=== PATIENT | male | born 1955 | race Caucasian/White ===

== ENCOUNTER 2017-05-05 00:09 | Emergency (ER) | payer OTHER ==
[2017-05-05 00:27] VITALS: BP 141/90; PULSE 80; TEMP 99.2; BMI 29.2
[2017-05-05] MEDS ORDERED: SODIUM CHLORIDE 1,000 ML IV STA (01:09)
[2017-05-05] MEDS ORDERED: KETOROLAC TROMETHAMINE 30 MG/1 ML VIAL IVPUSH ONE (01:09)
[2017-05-05] MEDS ORDERED: KETOROLAC TROMETHAMINE 30 MG/1 ML VIAL ONE (01:19)
[2017-05-05 01:29] LABS: MCH 26.8 pg (25.7-33.7); MCHC 33.2 g/dl (32.0-35.9); MEAN CELL VOLUME 80.9 fl (80-96); MEAN PLT VOLUME 9.5 fl (7.5-11.1); PLATELET COUNT 233 K/MM3 (134-434); RDW 14.5 % (11.9-15.9); WHITE BLOOD COUNT 10.8 K/mm3 (4.0-10.0)
--- NOTE | 2017-05-05 01:38 | PDOC ---
History of Present Illness - General History Source: Patient Exam Limitations: No Limitations - History of Present Illness Initial Comments: 05/05/17 01:32 Patient is a 61M with no significant medical history here today complaining of two days of fever, cough, runny dose, body aches and diarrhea. He denies getting a flu shot. Denies sick contacts. Patient denies chest pain, shortness of breath, and abdominal pain. He says he's had many episodes of diarrhea, but denies blood in his stool. He says he's had decreased PO intake because he's had to go to the bathroom so many times. <Jorge Disla - Last Filed: 05/05/17 04:45> <Yara Parry - Last Filed: 05/05/17 20:01> - General Chief Complaint: Pain Stated Complaint: COUGH Time Seen by Provider: 05/05/17 00:54 Past History - Past Medical History COPD: No HTN: Yes Hypercholesterolemia: Yes Psychiatric Problems: Yes (Anxiety, depression) - Suicide/Smoking/Psychosocial Hx Smoking History: Never smoked Have you smoked in the past 12 months: No Information on smoking cessation initiated: No Hx Alcohol Use: No Drug/Substance Use Hx: Yes (Marijuana) Substance Use Type: Alcohol, Marijuana <Jorge Disla - Last Filed: 05/05/17 04:45> <Yara Parry - Last Filed: 05/05/17 20:01> - Past Medical History Allergies/Adverse Reactions: Allergies Allergy/AdvReac Type Severity Reaction Status Date / Time apple Allergy Severe Difficulty Verified 05/05/17 00:24 Breathing pear Allergy Severe Difficulty Verified 05/05/17 00:24 Breathing No Known Drug Allergies Allergy Verified 05/05/17 00:24 Home Medications: Ambulatory Orders Unobtainable [Unobtainable] 02/17/15 Review of Systems - Review of Systems Comments:: 05/05/17 01:36 GENERAL/CONSTITUTIONAL: Positive for fever and chills. No weakness. HEAD, EYES, EARS, NOSE AND THROAT: No change in vision. Positive for sore throat. CARDIOVASCULAR: No chest pain or shortness of breath RESPIRATORY: No cough, wheezing, or hemoptysis. GASTROINTESTINAL: No nausea, vomiting. Positive for diarrhea. GENITOURINARY: No dysuria, frequency, or change in urination. SKIN: No rash NEUROLOGIC: Positive for headache. Negative for vertigo, loss of consciousness, or change in strength/sensation. ENDOCRINE: No increased thirst. No abnormal weight change ALLERGIC/IMMUNOLOGIC: No hives or skin allergy. <Jorge Disla - Last Filed: 05/05/17 04:45> *Physical Exam - Vital Signs Last Vital Signs Temp Pulse Resp BP Pulse Ox 99.2 F 80 20 141/90 98 05/05/17 00:25 05/05/17 00:25 05/05/17 00:25 05/05/17 00:25 05/05/17 00:25 - Physical Exam Comments: 05/05/17 01:38 GENERAL: Awake, alert, and fully oriented, in no acute distress HEAD: No signs of trauma, normocephalic, atraumatic EYES: PERRLA, EOMI, sclera anicteric, conjunctiva clear ENT: Auricles normal inspection, hearing grossly normal, nares patent, oropharynx clear without exudates. Dry mucosa NECK: Normal ROM, supple, no lymphadenopathy, JVD, or masses, no midline tenderness LUNGS: No distress, speaks full sentences, clear to auscultation bilaterally HEART: Regular rate and rhythm, normal S1 and S2, no murmurs, rubs or gallops, peripheral pulses normal and equal bilaterally. ABDOMEN: Soft, nontender, normoactive bowel sounds. No guarding, no rebound. No masses EXTREMITIES: Normal inspection, Normal range of motion, no edema. No clubbing or cyanosis. NEUROLOGICAL: Cranial nerves II through XII grossly intact. Normal speech, normal gait, no focal sensorimotor deficits SKIN: Warm, Dry, normal turgor, no rashes or lesions noted. <Jorge Disla - Last Filed: 05/05/17 04:45> - Vital Signs Last Vital Signs Temp Pulse Resp BP Pulse Ox 99.2 F 80 20 141/90 98 05/05/17 00:25 05/05/17 00:25 05/05/17 00:25 05/05/17 00:25 05/05/17 00:25 <Yara Parry - Last Filed: 05/05/17 20:01> ED Treatment Course - LABORATORY CBC & Chemistry Diagram: 05/05/17 01:15 05/05/17 01:15 - RADIOLOGY Radiology Studies Ordered: Category Date Time Status CHEST PA & LAT [RAD] Stat Radiology 05/05/17 01:09 Ordered - Medications Given in the ED: ED Medications Discontinued Medications Generic Name Dose Route Start Last Admin Trade Name Freq PRN Reason Stop Dose Admin Ketorolac Tromethamine 30 mg 05/05/17 01:09 05/05/17 01:28 Toradol Injection - IVPUSH 05/05/17 01:10 30 mg ONCE ONE Administration <Jorge Disla - Last Filed: 05/05/17 04:45> - LABORATORY CBC & Chemistry Diagram: 05/05/17 01:15 05/05/17 01:15 - ADDITIONAL ORDERS Additional order review: 05/05/17 01:25 Influenza Types A,B Antigen (ONIEL) - Final Nasopharyngeal Swab - Final 05/05/17 01:15 RBC 5.69 H MCV 80.9 MCHC 33.2 RDW 14.5 MPV 9.5 - Medications Given in the ED: ED Medications Discontinued Medications Generic Name Dose Route Start Last Admin Trade Name Freq PRN Reason Stop Dose Admin Acetaminophen 1,000 mg 05/05/17 04:24 05/05/17 04:29 Tylenol - PO 05/05/17 04:25 1,000 mg ONCE ONE Administration Sodium Chloride 1,000 mls @ 1,000 mls/hr 05/05/17 01:09 05/05/17 01:28 Normal Saline - IV 05/05/17 02:08 1,000 mls/hr ASDIR STA Administration Ketorolac Tromethamine 30 mg 05/05/17 01:09 05/05/17 01:28 Toradol Injection - IVPUSH 05/05/17 01:10 30 mg ONCE ONE Administration <Yara Parry - Last Filed: 05/05/17 20:01> Medical Decision Making - Medical Decision Making 05/05/17 01:38 61M with no PMH here today with subjective fever, diarrhea, chills, body aches. Vital signs stable and normal. Differential diagnosis includes, but is not limited to: undifferentiated viral illness, influenza. Will treat with IVF, toradol. Will eval with flu, cbc, cmp, cxr. 05/05/17 03:02 Laboratory Tests 05/05/17 05/05/17 01:15 01:15 WBC 10.8 H D Hgb 15.3 Hct 46.1 Plt Count 233 BUN 8 Creatinine 0.9 D CBC shows very slight leukocytosis. 05/05/17 04:45 CXR shows no acute cardiopulmonary process. Patient is asking for food to eat, no bowel movements in the ED. Says that he feels better. Will discharge with return precautions for diarrhea, suspect viral etiology. Will give tylenol for patient comfort, saying he feels a little warm. <Jorge Disla - Last Filed: 05/05/17 04:45> *DC/Admit/Observation/Transfer - Discharge Dispostion Admit: No <Jorge Disla - Last Filed: 05/05/17 04:45> <Yara Parry - Last Filed: 05/05/17 20:01> Diagnosis at time of Disposition: Diarrhea - Discharge Dispostion Disposition: HOME Condition at time of disposition: Good - Referrals Referrals: Ramy Rodriguez MD [Primary Care Provider] - - Patient Instructions Printed Discharge Instructions: DI for Diarrhea and Traveler's Diarrhea -- Adult Additional Instructions: Please return if you have any new, worsening, or concerning symptoms. Please follow up with your primary care physician next week. Print Language: KINYARWANDA - Post Discharge Activity Attending Attestation - Resident Resident Name: Jorge Disla - ED Attending Attestation I have performed the following: I have examined & evaluated the patient, The case was reviewed & discussed with the resident, I agree w/resident's findings & plan - HPI HPI: 05/05/17 20:00 Pt comes with fever and diarrhea - Physicial Exam PE: 05/05/17 20:00 agree with resident exam - Medical Decision Making 05/05/17 20:00 Pt improved with treatment in the ER. His labs are normal, and his flu is negative. Home with PMD followup as needed <Yara Parry - Last Filed: 05/05/17 20:01>
[2017-05-05 02:00] LABS: ALBUMIN 4.4 g/dl (3.4-5.0); ANION GAP 9 (8-16); CALCIUM 9.4 mg/dL (8.5-10.1); CO2 26 mmol/L (21-32); CREATININE 0.9 mg/dL (0.7-1.3); GLUCOSE,RANDOM 115 mg/dL (74-106); SGPT/ALT 31 U/L (12-78)
[2017-05-05 02:02] LABS: ALK PHOS 118 U/L (45-117); BILIRUBIN,TOTAL 0.7 mg/dL (0.2-1.0); TOT PROT 8.5 g/dl (6.4-8.2)
[2017-05-05 02:03] LABS: SGOT/AST 26 U/L (15-37)
[2017-05-05] MEDS ORDERED: ACETAMINOPHEN 500 MG TABLET (FP) PO ONE (04:24)
[2017-05-05] MEDS ORDERED: ACETAMINOPHEN 325 MG TABLET (FP) ONE (04:26)
== END 2017-05-05 04:56 | disposition home or self-care (01) ==
LOC: JER 00:09
PROC: 3E0333Z Introduction of Anti-inflammatory into Peripheral Vein, Percutaneous Approach (ICD-10-PCS; principal; 2017-05-05)
DX: A08.4 Viral intestinal infection, unspecified (principal); B97.89 Other viral agents as the cause of diseases classified elsewhere
CPT/HCPCS: 36415; 71020-TC; 80053; 85027; 87804; 99282-25

== ENCOUNTER 2017-05-19 14:02 | Emergency (ER) | payer OTHER ==
[2017-05-19 14:19] VITALS: BP 126/75; PULSE 64; TEMP 98.3; BMI 66.2
--- NOTE | 2017-05-19 14:43 | PDOC ---
History of Present Illness - General Chief Complaint: Nausea/Vomiting Stated Complaint: SICK Time Seen by Provider: 05/19/17 14:32 History Source: Patient Exam Limitations: No Limitations - History of Present Illness Initial Comments: 05/19/17 16:36 CHIEF COMPLAINT: Fever HISTORY OF PRESENT ILLNESS: This is an otherwise healthy 61-year-old male who presents for evaluation of 2 days of subjective fever, cough/nasal congestion, diarrhea, and nausea/vomiting. He thinks that he has the flu. He denies chest pain, shortness of breath, or any other symptoms. He is unable to specify the number of episodes of vomiting or diarrhea.He denies all medical problems including HIV and hepatitis although he does seem to have a referral to the [facility] in the system. Vital signs on arrival are unremarkable. PCP: Dr. Ramy Rodriguez REVIEW OF SYSTEMS: GENERAL/CONSTITUTIONAL: Subjective fever. No weakness. No weight change. HEAD, EYES, EARS, NOSE AND THROAT: Nasal congestion. No change in vision. No ear pain or discharge. No sore throat. CARDIOVASCULAR: No chest pain or palpitations. RESPIRATORY: Productive cough. No shortness of breath. GASTROINTESTINAL: Nausea/vomiting, diarrhea. No abdominal pain. GENITOURINARY: No dysuria, frequency, or change in urination. MUSCULOSKELETAL: No joint or muscle swelling or pain. No neck or back pain. SKIN: No rash or easy bruising. NEUROLOGIC: Frontal headache, gradual onset. No vertigo, loss of consciousness, or loss of sensation. PSYCHIATRIC: No depression or anxiety. ENDOCRINE: No increased thirst. No abnormal weight change. HEMATOLOGIC/LYMPHATIC: No anemia, easy bleeding, or history of blood clots. ALLERGIC/IMMUNOLOGIC: No hives or skin allergy. No latex allergy. PHYSICAL EXAM: GENERAL: The patient is awake, alert, and fully oriented, in no acute distress. HEAD: Normal with no signs of trauma. ENT: Pupils equal, round and reactive to light, extraocular movements intact, sclera anicteric, conjunctiva clear. Neck supple. LUNGS: Clear to auscultation bilaterally. Normal excursion. No respiratory distress or use of accessory muscles. CV: RRR, S1/S2, no MRG. Cap refill < 2 sec. ABDOMEN: Soft, non-distended, non-tender. EXTREMITIES: Normal range of motion, no edema. NEUROLOGICAL: Normal speech, normal gait. CN II-XII grossly intact. PSYCH: Normal mood, normal affect. SKIN: Warm, dry, normal turgor, no rashes or lesions noted. Past History - Past Medical History Allergies/Adverse Reactions: Allergies Allergy/AdvReac Type Severity Reaction Status Date / Time apple Allergy Severe Difficulty Verified 05/19/17 14:19 Breathing pear Allergy Severe Difficulty Verified 05/19/17 14:19 Breathing No Known Drug Allergies Allergy Verified 05/19/17 14:19 Home Medications: Ambulatory Orders Unobtainable [Unobtainable] 02/17/15 COPD: No HTN: Yes Hypercholesterolemia: Yes Psychiatric Problems: Yes (Anxiety, depression) - Suicide/Smoking/Psychosocial Hx Smoking History: Never smoked Have you smoked in the past 12 months: No Hx Alcohol Use: No Drug/Substance Use Hx: Yes (Marijuana) Substance Use Type: Alcohol, Marijuana *Physical Exam - Vital Signs Last Vital Signs Temp Pulse Resp BP Pulse Ox 98.3 F 64 18 126/75 99 05/19/17 14:16 05/19/17 14:16 05/19/17 14:16 05/19/17 14:16 05/19/17 14:16 Medical Decision Making - Medical Decision Making 05/19/17 18:11 A/P: 61 year old male with diarrhea, vomiting, and flu-like symptoms. No focal findings on exam. Rapid flu obtained and is negative. Tylenol and Toradol given for headache with good relief. CXR wet read: no infiltrate. The patient refuses to have any lab work done, despite being advised that this is necessary for adequate screening and diagnosis. He is feeling well and would like to be discharged. Return precautions reviewed. *DC/Admit/Observation/Transfer Diagnosis at time of Disposition: Flu-like symptoms Diarrhea Qualifiers: Diarrhea type: unspecified type Qualified Code(s): R19.7 - Diarrhea, unspecified Vomiting Qualifiers: Vomiting Intractability: unspecified Nausea presence: with nausea - Discharge Dispostion Disposition: HOME Condition at time of disposition: Stable Admit: No - Referrals Referrals: Ramy Rodriguez MD [Primary Care Provider] - - Patient Instructions Printed Discharge Instructions: DI for Diarrhea and Traveler's Diarrhea -- Adult Additional Instructions: Rest and stay well-hydrated Return if you would like to have lab work and further evaluation - Post Discharge Activity
[2017-05-19] MEDS ORDERED: ACETAMINOPHEN 325 MG TABLET (FP) PO ONE (14:54)
[2017-05-19] MEDS ORDERED: SODIUM CHLORIDE 1,000 ML IV STA (14:54)
[2017-05-19] MEDS ORDERED: ACETAMINOPHEN 325 MG TABLET (FP) ONE (15:16)
[2017-05-19] MEDS ORDERED: KETOROLAC TROMETHAMINE 30 MG/1 ML VIAL IM ONE (16:06)
[2017-05-19] MEDS ORDERED: KETOROLAC TROMETHAMINE 30 MG/1 ML VIAL ONE (16:39)
== END 2017-05-19 18:22 | disposition home or self-care (01) ==
LOC: JER 14:02
PROC: 3E0233Z Introduction of Anti-inflammatory into Muscle, Percutaneous Approach (ICD-10-PCS; principal; 2017-05-19)
DX: J11.2 Influenza due to unidentified influenza virus with gastrointestinal manifestations (principal)
CPT/HCPCS: 71046-TC; 87804; 96372; 99283-25

== ENCOUNTER 2021-07-11 23:36 | Observation (INO) | payer OTHER ==
[2021-07-11] MEDS ORDERED: ASPIRIN 81 MG CHEWABLE TABLETS PO ONE (23:45)
[2021-07-12 00:04] VITALS: TEMP 98.3; BMI 26.6
[2021-07-12] MEDS ORDERED: ASPIRIN 81 MG CHEWABLE TABLETS ONE (00:11)
[2021-07-12 00:37] LABS: BASO % 0.4 % (0-2.0); EOS % 0.6 % (0-4.5); HEMATOCRIT 40.2 % (35.4-49); HEMOGLOBIN 13.7 GM/dL (11.7-16.9); LYMPH % 14.5 % (8-40); MCH 27.2 pg (25.7-33.7); MCHC 34.1 g/dl (32.0-35.9); MEAN CELL VOLUME 79.7 fl (80-96); MEAN PLT VOLUME 8.8 fl (7.5-11.1); MONO % 6.9 % (3.8-10.2); NEUT % 77.6 % (42.8-82.8); PLATELET COUNT 196 10^3/uL (134-434); RBC 5.05 M/mm3 (4.00-5.60); WHITE BLOOD COUNT 7.3 K/mm3 (4.0-10.0)
[2021-07-12 00:47] LABS: INR 1.13 (0.83-1.09)
[2021-07-12 00:49] LABS: ACTIVATED PTT 30.3 SECONDS (25.2-36.5)
[2021-07-12 00:58] LABS: ALBUMIN 3.8 g/dl (3.4-5.0); BLOOD UREA NITROGEN 12.8 mg/dL (7-18); CALCIUM 9.2 mg/dL (8.5-10.1)
[2021-07-12 00:59] LABS: MAGNESIUM 2.1 mg/dL (1.8-2.4)
[2021-07-12 01:01] LABS: CREATININE 0.8 mg/dL (0.55-1.3)
[2021-07-12 01:03] LABS: BILIRUBIN,TOTAL 0.3 mg/dL (0.2-1); TOT PROT 7.1 g/dl (6.4-8.2)
[2021-07-12 06:48] LABS: URINE APPEARANCE CLEAR; URINE BILIRUBIN NEGATIVE (NEGATIVE); URINE COLOR YELLOW; URINE GLUCOSE (UA) NEGATIVE (NEGATIVE); URINE KETONE NEGATIVE (NEGATIVE); URINE LEUK ESTERASE NEGATIVE (NEGATIVE); URINE NITRITE NEGATIVE (NEGATIVE); URINE PROTEIN NEGATIVE (NEGATIVE); URINE UROBILINOGEN 0.2 mg/dL (0.2-1.0)
[2021-07-12 07:55] LABS: PHENCYCLIDINE,URINE NEGATIVE (NEGATIVE); URINE BARBITURATES NEGATIVE (NEGATIVE); URINE BENZODIAZEPINES NEGATIVE (NEGATIVE)
[2021-07-12 07:56] LABS: OPIATES, URI NEGATIVE (NEGATIVE)
[2021-07-12 07:58] LABS: COCAINE, UR NEGATIVE (NEGATIVE); METHADONE, UR NEGATIVE (NEGATIVE); URINE AMPHETAMINES NEGATIVE (NEGATIVE)
[2021-07-12 08:34] VITALS: BP 134/89; PULSE 70
[2021-07-12 09:15] LABS: BASO % 0.2 % (0-2.0); EOS % 0.8 % (0-4.5); HEMATOCRIT 41.7 % (35.4-49); HEMOGLOBIN 14.1 GM/dL (11.7-16.9); LYMPH % 10.5 % (8-40); MCH 27.3 pg (25.7-33.7); MCHC 33.9 g/dl (32.0-35.9); MEAN CELL VOLUME 80.6 fl (80-96); MEAN PLT VOLUME 8.9 fl (7.5-11.1); MONO % 7.3 % (3.8-10.2); NEUT % 81.2 % (42.8-82.8); PLATELET COUNT 189 10^3/uL (134-434); RBC 5.18 M/mm3 (4.00-5.60); RDW 14.3 % (11.9-15.9); WHITE BLOOD COUNT 7.9 K/mm3 (4.0-10.0)
[2021-07-12 09:45] LABS: ALBUMIN 3.8 g/dl (3.4-5.0); CALCIUM 8.6 mg/dL (8.5-10.1)
[2021-07-12 09:46] LABS: BLOOD UREA NITROGEN 9.9 mg/dL (7-18)
[2021-07-12 09:49] LABS: CREATININE 0.7 mg/dL (0.55-1.3); PHOSPHOROUS 3.8 mg/dL (2.5-4.9)
[2021-07-12 09:50] LABS: BILIRUBIN,TOTAL 0.3 mg/dL (0.2-1)
[2021-07-12 09:52] LABS: TOT PROT 6.9 g/dl (6.4-8.2)
[2021-07-12] MEDS ORDERED: ASPIRIN COATED 81 MG TABLET.EC PO SCH (10:00)
[2021-07-12] MEDS ORDERED: ENOXAPARIN NA (PORCINE) 40 MG/0.4 ML DISP.SYRIN SQ SCH (10:00)
[2021-07-12] MEDS ORDERED: ATORVASTATIN CA 40 MG TABLET (FP) PO SCH (22:00)
== END 2021-07-12 08:45 | disposition left against medical advice (07) ==
LOC: JER 23:36 → JERBED 07-12 04:15
PROVIDERS: ADMIT Internal Medicine
DX: R07.89 Other chest pain (principal); I10 Essential (primary) hypertension; E78.5 Hyperlipidemia, unspecified; F41.8 Other specified anxiety disorders; R07.9 Chest pain, unspecified; Z29.9 Encounter for prophylactic measures, unspecified; Z91.018 Allergy to other foods
CPT/HCPCS: 36415; 71045-TC-FY; 80053; 80061; 80307; 81003; 82550; 83036; 83735; 84100; 84443; 84484; 85025; 85610; 85730; 93005; 93010; 99285-25; C9803; G0378; U0003; U0005

== ENCOUNTER 2021-10-28 20:11 | Emergency (ER) | payer OTHER ==
[2021-10-28 20:24] VITALS: BP 148/81; PULSE 70; TEMP 99; BMI 28.1
[2021-10-28] MEDS ORDERED: ACETAMINOPHEN 1000 MG/100 ML BAG IVPB ONE (22:04)
[2021-10-28] MEDS ORDERED: SODIUM CHLORIDE 0.9% 1000 ML INFUS.BAG IV ONE (22:04)
[2021-10-28] MEDS ORDERED: MAG HYDROX/AL HYDROX/SIMETH -MYLANTA- ORAL SUSPENSION PO ONE (22:04)
[2021-10-28] MEDS ORDERED: FAMOTIDINE 20 MG/50 ML IVPB 20 MG/50 ML MG IVPB ONE ×2 (22:04→22:35)
[2021-10-28] MEDS ORDERED: ONDANSETRON 4 MG/2 ML VIAL IVPUSH ONE (22:04)
[2021-10-28] MEDS ORDERED: MAG HYDROX/AL HYDROX/SIMETH 30 ML UNIT-DOSE CUP ONE (22:35)
[2021-10-28] MEDS ORDERED: ONDANSETRON 4 MG/2 ML VIAL ONE (22:35)
[2021-10-28] MEDS ORDERED: ACETAMINOPHEN INJECTION 100 ML IVPB ONE (22:35)
[2021-10-28 22:46] LABS: BASO % 0.5 % (0-2.0); HEMATOCRIT 45.8 % (35.4-49); HEMOGLOBIN 15.3 GM/dL (11.7-16.9); LYMPH % 17.9 % (8-40); MCH 26.8 pg (25.7-33.7); MCHC 33.4 g/dl (32.0-35.9); MEAN PLT VOLUME 8.7 fl (7.5-11.1); MONO % 6.3 % (3.8-10.2); NEUT % 74.3 % (42.8-82.8); PLATELET COUNT 274 10^3/uL (134-434); RBC 5.72 M/mm3 (4.00-5.60); RDW 15.7 % (11.9-15.9); WHITE BLOOD COUNT 7.6 K/mm3 (4.0-10.0)
[2021-10-28 23:17] LABS: ALBUMIN 4.4 g/dl (3.4-5.0); BLOOD UREA NITROGEN 12.2 mg/dL (7-18); CALCIUM 9.1 mg/dL (8.5-10.1)
[2021-10-28 23:20] LABS: CREATININE 0.9 mg/dL (0.55-1.3)
[2021-10-28 23:22] LABS: BILIRUBIN,TOTAL 0.6 mg/dL (0.2-1); TOT PROT 8.9 g/dl (6.4-8.2)
== END 2021-10-29 01:36 | disposition home or self-care (01) ==
LOC: JER 20:11
PROC: 3E033GC Introduction of Other Therapeutic Substance into Peripheral Vein, Percutaneous Approach (ICD-10-PCS; principal; 2021-10-28)
DX: K80.20 Calculus of gallbladder without cholecystitis without obstruction (principal); K76.0 Fatty (change of) liver, not elsewhere classified; J11.1 Influenza due to unidentified influenza virus with other respiratory manifestations; R07.89 Other chest pain
CPT/HCPCS: 0241U-QW; 36415; 71046-TC-FY; 76705-TC; 80053; 83690; 84484; 85025; 93005; 93010; 96365; 96375; 99285-25

== ENCOUNTER 2021-11-03 21:06 | Observation (INO) | payer OTHER ==
[2021-11-03 22:49] LABS: BASO % 0.3 % (0-2.0); EOS % 0.2 % (0-4.5); HEMOGLOBIN 14.3 GM/dL (11.7-16.9); LYMPH % 13.5 % (8-40); MCH 26.9 pg (25.7-33.7); MCHC 33.9 g/dl (32.0-35.9); MEAN CELL VOLUME 79.2 fl (80-96); MEAN PLT VOLUME 8.6 fl (7.5-11.1); MONO % 8.5 % (3.8-10.2); NEUT % 77.5 % (42.8-82.8); PLATELET COUNT 242 10^3/uL (134-434); RDW 15.3 % (11.9-15.9); WHITE BLOOD COUNT 10.9 K/mm3 (4.0-10.0)
[2021-11-03 22:51] LABS: PH,URINE 5.5 (5.0-8.0); URINE APPEARANCE CLEAR; URINE BILIRUBIN NEGATIVE (NEGATIVE); URINE COLOR YELLOW; URINE GLUCOSE (UA) NEGATIVE (NEGATIVE); URINE KETONE NEGATIVE (NEGATIVE); URINE LEUK ESTERASE NEGATIVE (NEGATIVE); URINE NITRITE NEGATIVE (NEGATIVE); URINE PROTEIN NEGATIVE (NEGATIVE); URINE UROBILINOGEN 0.2 mg/dL (0.2-1.0)
[2021-11-04 00:15] LABS: CALCIUM 9.2 mg/dL (8.5-10.1)
[2021-11-04 00:17] LABS: ALBUMIN 4.2 g/dl (3.4-5.0)
[2021-11-04 00:20] LABS: BILIRUBIN,TOTAL 0.2 mg/dL (0.2-1)
[2021-11-04 00:22] LABS: TOT PROT 7.9 g/dl (6.4-8.2)
[2021-11-04 00:25] LABS: BLOOD UREA NITROGEN 13.5 mg/dL (7-18)
[2021-11-04] MEDS ORDERED: MELATONIN 1 MG TABLET PO ONE ×2 (02:32)
[2021-11-04] MEDS ORDERED: MELATONIN 5 MG TABLETS ONE (02:41)
[2021-11-04 07:39] LABS: BASO % 0.5 % (0-2.0); EOS % 0.8 % (0-4.5); HEMATOCRIT 43.6 % (35.4-49); HEMOGLOBIN 14.8 GM/dL (11.7-16.9); MCH 27.1 pg (25.7-33.7); MEAN CELL VOLUME 79.9 fl (80-96); MEAN PLT VOLUME 8.5 fl (7.5-11.1); MONO % 6.6 % (3.8-10.2); NEUT % 64.1 % (42.8-82.8); PLATELET COUNT 240 10^3/uL (134-434); RBC 5.45 M/mm3 (4.00-5.60); RDW 15.3 % (11.9-15.9); WHITE BLOOD COUNT 7.2 K/mm3 (4.0-10.0)
[2021-11-04 07:51] LABS: CALCIUM 9.4 mg/dL (8.5-10.1)
[2021-11-04 07:52] LABS: BLOOD UREA NITROGEN 9.2 mg/dL (7-18); MAGNESIUM 2.4 mg/dL (1.8-2.4)
[2021-11-04 07:55] LABS: CREATININE 0.7 mg/dL (0.55-1.3)
[2021-11-04] MEDS: ASPIRIN 81 MG CHEWABLE TABLETS PO SCH (15:08)
[2021-11-04] MEDS: amLODIPine BESYLATE 5 MG TABLET (FP) PO SCH (15:08)
[2021-11-04] MEDS: ENOXAPARIN NA (PORCINE) 40 MG/0.4 ML DISP.SYRIN SQ SCH (15:08)
[2021-11-04 15:49] VITALS: BMI 30.9
[2021-11-04] MEDS: ATORVASTATIN CA 20 MG TABLET (FP) PO SCH (22:08)
[2021-11-04] MEDS ORDERED: MELATONIN 5 MG TABLETS PO ONE (22:22)
[2021-11-05] MEDS: ASPIRIN 81 MG CHEWABLE TABLETS PO SCH (10:59)
[2021-11-05] MEDS: PANTOPRAZOLE 40 MG TABLET PO SCH (10:59)
[2021-11-05] MEDS: amLODIPine BESYLATE 5 MG TABLET (FP) PO SCH (10:59)
[2021-11-05] MEDS: ENOXAPARIN NA (PORCINE) 40 MG/0.4 ML DISP.SYRIN SQ SCH (13:39)
[2021-11-05] MEDS: ATORVASTATIN CA 20 MG TABLET (FP) PO SCH (21:39)
[2021-11-05] MEDS: MELATONIN 5 MG TABLETS PO PRN (21:56)
[2021-11-06] MEDS: ASPIRIN 81 MG CHEWABLE TABLETS PO SCH (09:42)
[2021-11-06] MEDS: amLODIPine BESYLATE 5 MG TABLET (FP) PO SCH (09:43)
[2021-11-06] MEDS: ENOXAPARIN NA (PORCINE) 40 MG/0.4 ML DISP.SYRIN SQ SCH (09:43)
[2021-11-06] MEDS: PANTOPRAZOLE 40 MG TABLET PO SCH (09:43)
[2021-11-06] MEDS: ATORVASTATIN CA 20 MG TABLET (FP) PO SCH (22:30)
[2021-11-06] MEDS: MELATONIN 5 MG TABLETS PO PRN (22:30)
[2021-11-07] MEDS: amLODIPine BESYLATE 5 MG TABLET (FP) PO SCH (10:28)
[2021-11-07] MEDS: ASPIRIN 81 MG CHEWABLE TABLETS PO SCH (10:28)
[2021-11-07] MEDS: ENOXAPARIN NA (PORCINE) 40 MG/0.4 ML DISP.SYRIN SQ SCH (10:28)
[2021-11-07] MEDS: PANTOPRAZOLE 40 MG TABLET PO SCH (10:28)
[2021-11-07] MEDS: MELATONIN 5 MG TABLETS PO PRN (21:48)
[2021-11-07] MEDS: ZOLPIDEM TARTRATE 5 MG TABLET PO PRN (21:48)
[2021-11-07] MEDS: ATORVASTATIN CA 20 MG TABLET (FP) PO SCH (21:48)
[2021-11-08] MEDS: amLODIPine BESYLATE 5 MG TABLET (FP) PO SCH (10:03)
[2021-11-08] MEDS: PANTOPRAZOLE 40 MG TABLET PO SCH (10:03)
[2021-11-08] MEDS: ENOXAPARIN NA (PORCINE) 40 MG/0.4 ML DISP.SYRIN SQ SCH (10:03)
[2021-11-08] MEDS: ASPIRIN 81 MG CHEWABLE TABLETS PO SCH (10:03)
[2021-11-08] MEDS: MELATONIN 5 MG TABLETS PO PRN (21:27)
[2021-11-08] MEDS: ATORVASTATIN CA 20 MG TABLET (FP) PO SCH (21:27)
[2021-11-08] MEDS: ZOLPIDEM TARTRATE 5 MG TABLET PO PRN (21:27)
[2021-11-09 08:20] LABS: BASO % 0.6 % (0-2.0); EOS % 0.8 % (0-4.5); HEMATOCRIT 44.8 % (35.4-49); HEMOGLOBIN 15.4 GM/dL (11.7-16.9); LYMPH % 29.2 % (8-40); MCH 27.2 pg (25.7-33.7); MCHC 34.3 g/dl (32.0-35.9); MEAN CELL VOLUME 79.3 fl (80-96); MEAN PLT VOLUME 8.8 fl (7.5-11.1); MONO % 6.7 % (3.8-10.2); NEUT % 62.7 % (42.8-82.8); PLATELET COUNT 246 10^3/uL (134-434); RBC 5.65 M/mm3 (4.00-5.60); RDW 15.4 % (11.9-15.9); WHITE BLOOD COUNT 10.3 K/mm3 (4.0-10.0)
[2021-11-09 08:36] LABS: CALCIUM 9.4 mg/dL (8.5-10.1)
[2021-11-09 08:37] LABS: ALBUMIN 4.2 g/dl (3.4-5.0); BLOOD UREA NITROGEN 13.8 mg/dL (7-18)
[2021-11-09 08:40] LABS: CREATININE 0.9 mg/dL (0.55-1.3)
[2021-11-09 08:52] LABS: BILIRUBIN,TOTAL 0.8 mg/dL (0.2-1); TOT PROT 7.9 g/dl (6.4-8.2)
[2021-11-09] MEDS: amLODIPine BESYLATE 5 MG TABLET (FP) PO SCH (10:35)
[2021-11-09] MEDS: ASPIRIN 81 MG CHEWABLE TABLETS PO SCH (10:35)
[2021-11-09] MEDS: ENOXAPARIN NA (PORCINE) 40 MG/0.4 ML DISP.SYRIN SQ SCH ×2 (10:36→10:40)
[2021-11-09] MEDS: PANTOPRAZOLE 40 MG TABLET PO SCH (10:36)
[2021-11-09] MEDS: ATORVASTATIN CA 20 MG TABLET (FP) PO SCH (22:16)
[2021-11-09] MEDS: ZOLPIDEM TARTRATE 5 MG TABLET PO PRN (22:16)
[2021-11-09] MEDS: MELATONIN 5 MG TABLETS PO PRN (22:20)
[2021-11-10 10:11] VITALS: TEMP 98.2
[2021-11-10] MEDS: ENOXAPARIN NA (PORCINE) 40 MG/0.4 ML DISP.SYRIN SQ SCH (10:17)
[2021-11-10] MEDS: PANTOPRAZOLE 40 MG TABLET PO SCH (10:17)
[2021-11-10] MEDS: amLODIPine BESYLATE 5 MG TABLET (FP) PO SCH (10:17)
[2021-11-10] MEDS: ASPIRIN 81 MG CHEWABLE TABLETS PO SCH (10:17)
[2021-11-10 14:09] VITALS: BP 145/75; PULSE 71
== END 2021-11-10 18:50 | disposition home or self-care (01) ==
LOC: JER 21:06 → JERBED 11-04 00:43 → J4W 11-04 08:56 → J7W 11-07 21:53
PROVIDERS: ADMIT Hospitalist
PROC: 3E013GC Introduction of Other Therapeutic Substance into Subcutaneous Tissue, Percutaneous Approach (ICD-10-PCS; principal; 2021-11-04)
DX: K11.7 Disturbances of salivary secretion (principal); R07.89 Other chest pain; I10 Essential (primary) hypertension; E78.5 Hyperlipidemia, unspecified; F41.9 Anxiety disorder, unspecified; F32.A Depression, unspecified; R13.10 Dysphagia, unspecified; K21.9 Gastro-esophageal reflux disease without esophagitis; G47.00 Insomnia, unspecified; F39 Unspecified mood [affective] disorder; N40.0 Benign prostatic hyperplasia without lower urinary tract symptoms; E66.9 Obesity, unspecified; Z68.30 Body mass index [BMI] 30.0-30.9, adult; Z91.018 Allergy to other foods
CPT/HCPCS: 36415; 70360-TC-FY; 70470-TC; 70491-TC; 71046-TC-FY; 71260-TC; 74230-TC-FY; 80048; 80053; 80061; 81003; 82550; 83036; 83690; 83735; 84443; 84484; 85025; 92611-GN; 93005; 93010; 96372; 99285-25; C9803-CS; G0378; Q9967; U0003; U0005

== ENCOUNTER 2023-05-16 00:22 | Observation (INO) | payer OTHER ==
[2023-05-16 00:35] VITALS: BMI 33.7
[2023-05-16] MEDS ORDERED: ACETAMINOPHEN 1000 MG/100 ML BAG IVPB ONE (01:07)
[2023-05-16] MEDS ORDERED: ACETAMINOPHEN INJECTION 100 ML IVPB ONE (01:16)
[2023-05-16] MEDS ORDERED: SODIUM CHLORIDE 0.9% 1000 ML INFUS.BAG IV STA (01:27)
[2023-05-16 01:44] LABS: BASO % 0.2 % (0-2.0); EOS % 0.1 % (0-4.5); HEMATOCRIT 43.4 % (35.4-49); HEMOGLOBIN 14.4 GM/dL (11.7-16.9); LYMPH % 7.4 % (8-40); MCH 25.6 pg (25.7-33.7); MCHC 33.2 g/dl (32.0-35.9); MEAN CELL VOLUME 77.1 fl (80-96); MEAN PLT VOLUME 8.8 fl (7.5-11.1); MONO % 7.9 % (3.8-10.2); NEUT % 84.4 % (42.8-82.8); PLATELET COUNT 228 10^3/uL (134-434); RBC 5.63 M/mm3 (4.00-5.60); RDW 15.2 % (11.9-15.9); WHITE BLOOD COUNT 8.7 K/mm3 (4.0-10.0)
[2023-05-16] MEDS ORDERED: AZITHROMYCIN IVPB 500 MG in DEXTROSE 5%-WATER - 250 ML IVPB ONE (01:59)
[2023-05-16] MEDS ORDERED: CEFTRIAXONE 1,000 MG in DEXTROSE 5%-WATER - 50 ML IVPB ONE (01:59)
[2023-05-16 02:05] LABS: POTASSIUM 3.9 mmol/L (3.5-5.1)
[2023-05-16 02:07] LABS: BLOOD UREA NITROGEN 12.1 mg/dL (7-18); CALCIUM 9.4 mg/dL (8.5-10.1)
[2023-05-16 02:08] LABS: ALBUMIN 4.2 g/dl (3.4-5.0)
[2023-05-16 02:11] LABS: CREATININE 1.1 mg/dL (0.55-1.3)
[2023-05-16 02:12] LABS: BILIRUBIN,TOTAL 0.4 mg/dL (0.2-1)
[2023-05-16 02:13] LABS: TOT PROT 8.7 g/dl (6.4-8.2)
[2023-05-16 02:24] LABS: N-TERMINAL BNP 33.2 pg/ml (5-125)
[2023-05-16] MEDS ORDERED: CEFTRIAXONE 1 GM/50 ML BAG ONE (02:33)
[2023-05-16] MEDS ORDERED: AZITHROMYCIN IVPB 500 MG/250 ML BAG IVPB ONE (02:33)
[2023-05-16 03:04] VITALS: TEMP 100
[2023-05-16] MEDS ORDERED: OSELTAMIVIR PHOSPHATE 75 MG CAPSULE PO ONE (05:39)
[2023-05-16] MEDS ORDERED: OSELTAMIVIR PHOSPHATE 75 MG CAPSULE PO SCH ×3 (05:45→22:00)
[2023-05-16] MEDS ORDERED: LACTATED RINGERS SOLUTION 1,000 ML/1,000 ML INFUS.BAG IV SCH (06:15)
[2023-05-16] MEDS ORDERED: ACETAMINOPHEN 325 MG TABLET (FP) PO PRN (06:34)
[2023-05-16] MEDS ORDERED: OSELTAMIVIR PHOSPHATE 75 MG CAPSULE ONE (07:25)
[2023-05-16 08:01] LABS: HEMATOCRIT 39.2 % (35.4-49); HEMOGLOBIN 12.7 GM/dL (11.7-16.9); MCH 25.5 pg (25.7-33.7); MCHC 32.5 g/dl (32.0-35.9); MEAN CELL VOLUME 78.6 fl (80-96); MEAN PLT VOLUME 9.2 fl (7.5-11.1); PLATELET COUNT 189 10^3/uL (134-434); RBC 4.98 M/mm3 (4.00-5.60); RDW 15.5 % (11.9-15.9); WHITE BLOOD COUNT 6.3 K/mm3 (4.0-10.0)
[2023-05-16 08:07] LABS: POTASSIUM 3.9 mmol/L (3.5-5.1)
[2023-05-16 08:18] LABS: CALCIUM 8.8 mg/dL (8.5-10.1)
[2023-05-16 08:19] LABS: ALBUMIN 3.5 g/dl (3.4-5.0); BLOOD UREA NITROGEN 10.4 mg/dL (7-18); MAGNESIUM 2.2 mg/dL (1.8-2.4)
[2023-05-16 08:21] LABS: CREATININE 0.9 mg/dL (0.55-1.3); PHOSPHOROUS 3.5 mg/dL (2.5-4.9)
[2023-05-16 08:23] LABS: BILIRUBIN,TOTAL 0.3 mg/dL (0.2-1); TOT PROT 7.3 g/dl (6.4-8.2)
[2023-05-16] MEDS ORDERED: ENOXAPARIN NA (PORCINE) 40 MG/0.4 ML DISP.SYRIN SQ ONE (09:31)
[2023-05-16 09:39] VITALS: RESP 19
[2023-05-16] MEDS ORDERED: ENOXAPARIN NA (PORCINE) 40 MG/0.4 ML DISP.SYRIN SQ SCH (10:00)
[2023-05-16 11:32] VITALS: BP 135/78; PULSE 78
[2023-05-16] MEDS ORDERED: predniSONE 20 MG TABLET (UD) PO ONE (11:37)
[2023-05-16] MEDS ORDERED: amLODIPine BESYLATE 5 MG TABLET (FP) PO SCH (11:45)
[2023-05-16] MEDS ORDERED: PANTOPRAZOLE 40 MG TABLET PO SCH (11:45)
[2023-05-16] MEDS ORDERED: LIPASE/PROTEASE/AMYLASE 36,000 UNIT CAPSULE PO SCH (14:00)
[2023-05-16] MEDS ORDERED: ATORVASTATIN CA 20 MG TABLET (FP) PO SCH (22:00)
[2023-05-17] MEDS ORDERED: FAMOTIDINE 20 MG TABLET PO SCH (10:00)
== END 2023-05-16 11:34 | disposition home or self-care (01) ==
LOC: JER 00:22 → INTOOBSV 02:22 → JERBED 02:22
PROVIDERS: ADMIT Internal Medicine; ATTEND Internal Medicine
PROC: 3E033NZ Introduction of Analgesics, Hypnotics, Sedatives into Peripheral Vein, Percutaneous Approach (ICD-10-PCS; principal; 2023-05-16)
PROC: 3E03329 Introduction of Other Anti-infective into Peripheral Vein, Percutaneous Approach (ICD-10-PCS; 2023-05-16)
PROC: 3E023GC Introduction of Other Therapeutic Substance into Muscle, Percutaneous Approach (ICD-10-PCS; 2023-05-16)
PROC: 3E0337Z Introduction of Electrolytic and Water Balance Substance into Peripheral Vein, Percutaneous Approach (ICD-10-PCS; 2023-05-16)
DX: J09.X2 Influenza due to identified novel influenza A virus with other respiratory manifestations (principal); J96.01 Acute respiratory failure with hypoxia; E78.5 Hyperlipidemia, unspecified; I10 Essential (primary) hypertension; Z29.89 Encounter for other specified prophylactic measures
CPT/HCPCS: 0241U-QW; 36415; 71046-TC-FY; 80053; 83690; 83735; 83880; 84100; 85025; 85027; 87040; 93005; 93010; 96361; 96365; 96367; 96372; 96375; 99285-25; G0378